=== PATIENT | female | born 2000 | race Two or more races ===

== ENCOUNTER → 2022-12-31 | Emergency (ER) | payer OTHER ==
[~2022-12-31] VITALS: Ht 149.9 cm; Wt 72.6 kg
== END | disposition home or self-care (01) ==
LOC: ER 09:53
DX: L60.0 Ingrowing nail (principal)

== ENCOUNTER 2023-07-19 19:10 | Emergency (ER) | payer OTHER ==
[~2023-07-19] VITALS: Ht 162.6 cm; Wt 67.6 kg
== END 2023-07-19 21:58 | disposition home or self-care (01) ==
LOC: ER 19:10
DX: L60.0 Ingrowing nail (principal)